=== PATIENT | male | born 1955 | race Caucasian/White ===

== ENCOUNTER 2021-11-16 03:46 | Emergency (ER) | payer MEDICARE, BC ==
[2021-11-16] MEDS ORDERED: Sodium Chloride 0.9% 10 ML Syringe FLUSH PRN (03:48)
[2021-11-16] MEDS ORDERED: Ketorolac 30 MG/ML SDV IVPUSH ONE (03:48)
[2021-11-16] MEDS ORDERED: Ondansetron 4 MG/2 ML SDV IVPUSH ONE (03:48)
[2021-11-16] MEDS ORDERED: Sodium Chloride 0.9% 1,000 ML IV SCH (04:00)
[2021-11-16 05:29] VITALS: BP 164/88; PULSE 90
== END 2021-11-16 06:26 | disposition home or self-care (01) ==
LOC: JP.ED 03:46
DX: N13.2 Hydronephrosis with renal and ureteral calculous obstruction (principal); I10 Essential (primary) hypertension; Z79.899 Other long term (current) drug therapy
CPT/HCPCS: 74176; 81001; 96374; 96375; 99284; 99284-25; J1885; J2405; J7030